=== PATIENT | female | born 1975 | race Caucasian/White ===

== ENCOUNTER 2018-03-16 13:30 | Outpatient (CLI) | END 2018-03-16 16:10 | disposition home or self-care (01) ==

== ENCOUNTER 2018-03-20 13:43 | Outpatient (CLI) | END 2018-03-20 19:15 | disposition home or self-care (01) ==

== ENCOUNTER 2018-04-13 12:05 | Inpatient (IN) | END 2018-04-16 15:30 | disposition home or self-care (01) | DRG 765 ==